=== PATIENT | female | born 1945 | race Caucasian/White ===

== ENCOUNTER 2024-04-14 07:07 | Day surgery (SDC) | payer MEDICARE, OTHER, SELFPAY ==
[2024-04-14 07:23] VITALS: BP 145/68; PULSE 69; RESP 18; TEMP 36.1; O2SAT 100; BMI 40.4
[2024-04-14 07:45] LABS: Bedside Glucose 148 mg/dL (74-106)
--- NOTE | 2024-04-14 08:43 | PCM.HP.BLA ---
History and Physical Date of Admission: 04/14/24 Patient is examined and there are no changes to the H&P dated 03/28/2024. 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 She presents for excision of the site with frozen section and possible rotation flap closure. Informed consent was obtained. Assessment & Plan Assessment/Plan (1) Neoplasm of uncertain behavior of skin: PLAN: Plan For excision lesion of left nose with frozen section and possible rotation flap.
[2024-04-14 09:17] VITALS: BP 115/53; BP 144/78; BP 145/78; BP 146/77; BP 147/71; BP 149/71; O2SAT 100; O2SAT 93; O2SAT 94; O2SAT 95; O2SAT 96; O2SAT 97
[2024-04-14] MEDS: Lidocaine 1% /Epi 1:100 9 ML, Sodium Bicarbonate 1 MEQ OPERA.SITE (09:27)
--- NOTE | 2024-04-14 10:08 | LES_PTH ---
PATIENT: MARJ ROLLINS LOC: [facility] – [place] U#:[id number] AGE/SX: 78/F ROOM: RE04/14/[address]: Dr. Adela Elizabeth MD : 1945 BED: DIS: 04/14/2024 SPEC #: [id number] RECD: 04/14/24 10:15 STATUS: ANDRÉS CANTUMaster #: [id number] MADIHA: 04/14/24 10:[address]: Adela Elizabeth DEPT: SURGICAL PATHOLOGY RECD BY: Juan Carlos Davila Tissues: Skin of nose, NOS Procedures: Frozen Section (charge) Surgery Specimen Level IV HEADER OPERATION: Excision lesion left nostril with frozen section PRE-OP DIAGNOSIS: Neoplasm of uncertain behavior of skin, left nostril TISSUE SUBMITTED: A- Neoplasm of uncertain behavior of skin, left nostril, B- Neoplasm of uncertain behavior of skin, left nostril, additional margin FROZEN SECTION DIAGNOSIS A. Left nostril lesion, excisional biopsy: Basal cell carcinoma. The tumor is very close to 6o'clock and 9o'clock margins. B. Left nostril lesion, additional margin, biopsy: Margins are free of tumor. Case has been reviewed in consultation with Dr. Henry who concurs with the above diagnosis. IDC:AM / 04/14/2024 MICROSCOPIC DIAGNOSIS A. Left nostril lesion, excisional biopsy: Basal cell carcinoma. Mild actinic keratosis and solar elastosis. See comment. B. Left nostril lesion, additional margin, biopsy: Negative for carcinoma. Mild actinic keratosis and solar elastosis. / 04/17/2024 COMMENT A. The tumor is very close to 6 and 9o'clock margins. Case has been reviewed in consultation with Dr. Henry who concurs with the above diagnosis. IDC:AM MICROSCOPIC DESCRIPTION Slides are reviewed. GROSS DESCRIPTION A. Received fresh for frozen section diagnosis labeled with the patient's name is a specimen designated Left nostril. The specimen consists of a piece of camarena-white skin measuring 1.5 x 1.0 x 0.2cm. The specimen is oriented on the gauze piece. The specimen is inked as follows: 12o'clock tip- yellow, 6o'clock tip- green, 3o'clock margin- black, 9o'clock margin- blue. The specimen is serially sectioned and submitted entirely in two cassettes as follows: 1- 12o'clock and 6o'clock tips, 2- rest of the specimen. B. Received fresh for frozen section diagnosis labeled with the patient's name is a specimen designated Left nostril additional margin 10-3. The specimen consists of a crescent shaped piece of camarena-white skin measuring 1.7 x 1.2 x 0.2cm. The specimen is inked as follows: 3-6o'clock margin-green, 6-10o'clock margin-blue. The specimen is submitted for frozen section diagnosis as follows: 3-6o'clock margin- serially sectioned, 6-10o'clock margin- enfaced. COLLIN/ 04/14/2024 TC:0 CPT:43709 x2,14833 x2, 23191 x2
--- NOTE | 2024-04-14 11:00 | DCINST_ITS ---
Discharge Instructions Dressing / Incision Additional Dressing/Incision Instructions:: Keep your back elevated (recliner position) for the next 7 nights to reduce swelling and bruising. Take the oral antibiotic (Keflex) 2 times a day until finished. Keep the tape dry. Leave this in place until seen in the office. Follow Up Care Please Follow Up With: Adela Elizabeth MD When: In 1 to 2 weeks as scheduled Test Results: Test results from this visit will be discussed in further detail at your follow- up appointment, if applicable. Discharge Plan Admission Attending Provider: Adela Elizabeth Primary Care Provider: LUCIANO RUIZ Instructions Print Language: Mongolian Discharge Orders/Prescriptions Prescriptions: New cephalexin 500 mg capsule 500 mg PO BID 7 Days Qty: 14 0RF No Action simvastatin 20 mg tablet 25 mg PO QHS amitriptyline 25 mg tablet 25 mg PO QHS sucralfate 1 gram tablet 1 g PO ONCE glipizide 5 mg tablet 10 mg PO QHS Referrals / Follow Up: LUCIANO RUIZ [Other] Disposition Disposition (needs filled in before D/C Order can be placed): Home, Self Care
--- NOTE | 2024-04-14 11:03 | OP.PCM_ITS ---
Problems Associated Problem List Diagnoses (1) Neoplasm of uncertain behavior of skin: Report of Operation Date of Procedure: 04/14/24 Pre-Operative Diagnosis: Neoplasm uncertain behavior of left nose with suspicion of BCC Post-Operative Diagnosis: BCC left nose Surgery/Procedure Performed:: Excision BCC left nose with FS x 2 (3.0 cm) Surgeon: Adela Elizabeth coding technician: ULYSSES JAMEScan reforming machine operator Type of Anesthesia: Local Specimen's removed: BCC nose with frozen section evaluation x 2 Description of Procedure: Patient presents with a history of BCC of the left nose. She presents with a new lesion suspicious for recurrent BCC. She is aware the potential for rotation flap depending on the resulting defect. The patient is brought to the operating room and placed on the operating room table in the supine position. The face is prepped and draped in the usual sterile fashion. 1% Xylocaine with epinephrine is used for local anesthetic. Following this, the suspicious lesion is excised with orientation maintained when it sent to pathology. Hemostasis is controlled with cautery. Frozen section reveals a positive margin at the 6 and 9 o'clock position. A reexcision is then performed after reanesthetizing with 1% Xylocaine with epinephrine. The specimen extends from the 3 and 10 o'clock position. Frozen section reveals clear margins including deep. Arrangement of the tissue reveals a primary closure will be possible. Initially interrupted silk sutures are placed. Following this, the wound is further approximated with a running chromic suture. Dermabond and Steri-Strips were applied to the wound. She tolerated the procedure well was taken to the recovery area in an awake and stable condition. Needle and sponge counts are correct. Complications None Admit VTE Documentation VTE Mechan Device Prophylaxis: None Reason prophylaxis not ordered:: Treatment Not Indicated
[2024-04-14 11:15] VITALS: BP 145/68; BP 151/66; PULSE 77; RESP 16; TEMP 37.2; O2SAT 97
== END 2024-04-14 11:41 | disposition home or self-care (01) ==
LOC: SDC 07:08 → AC 07:09
PROVIDERS: Referring Provider Plastic Surgery; Visit Provider Plastic Surgery
PROC: (CPT 11643; principal; 2024-04-14 09:10)
DX: C44.311 Basal cell carcinoma of skin of nose (principal); E11.9 Type 2 diabetes mellitus without complications
CPT/HCPCS: 11643; 82962; 88305; 88331